=== PATIENT | male | born 2000 | race African-American/Black ===

== ENCOUNTER 2021-12-23 19:29 | Inpatient (IN) | payer SELFPAY ==
[2021-12-23] MEDS ORDERED: SODIUM CHLORIDE 0.9% 1000 ML IV SOLN IV ONE (22:13)
[2021-12-23] MEDS ORDERED: CEFEPIME/NS 2 GM/100 ML 2 GM/100 ML BAG IV ONE (22:13)
--- NOTE | 2021-12-23 22:19 | Emergency Department Report ---
ED General Adult HPI - General Chief complaint: Nausea/Vomiting/Diarrhea Stated complaint: NAUSEA, CRAMPS, BLISTER Time Seen by Provider: 12/23/21 21:46 Source: patient Mode of arrival: Ambulatory Limitations: No Limitations - History of Present Illness Initial comments: 21-year-old male presents emerge apartment complaining of a 1 day history of nausea and malaise with occasional fevers sensation and spasms to the hand and arm which rapidly began to progress. He began to notice some redness and swelling to the right forearm of an unknown etiology earlier this morning and the redness and began to spread up the arm despite [id number] treatment. Pain is dull and throbbing with no fevers, chills, sweats. Reports no chest pain or palpitations. He was follow with a dentist on this past for a deep cleaning which required him to be on amoxicillin following the deplaning while he was taking amoxicillin as as prescribed the symptoms did evolve and rapidly progressed. Severity scale (0 -10): 8 Quality: dull Consistency: constant Improves with: none Worsens with: none Associated Symptoms: denies other symptoms, malaise, nausea/vomiting. denies: chest pain, cough, loss of appetite, syncope, weakness Treatments Prior to Arrival: none - Related Data Allergies Allergy/AdvReac Type Severity Reaction Status Date / Time No Known Allergies Allergy Unverified 12/23/21 19:45 ED Review of Systems ROS: Stated complaint: NAUSEA, CRAMPS, BLISTER Other details as noted in HPI Comment: All other systems reviewed and negative ED Physical Exam - General Limitations: No Limitations General appearance: alert, in no apparent distress - Head Head exam: Present: atraumatic, normocephalic - Eye Eye exam: Present: normal appearance, PERRL, EOMI Pupils: Present: normal accommodation - ENT ENT exam: Present: normal exam, normal orophraynx, mucous membranes moist, TM's normal bilaterally - Neck Neck exam: Present: normal inspection, full ROM - Respiratory Respiratory exam: Present: normal lung sounds bilaterally. Absent: respiratory distress, wheezes, rales, chest wall tenderness, accessory muscle use - Cardiovascular Cardiovascular Exam: Present: regular rate, normal rhythm. Absent: systolic murmur, diastolic murmur, rubs, gallop - GI/Abdominal GI/Abdominal exam: Present: soft, normal bowel sounds - Rectal Rectal exam: Present: deferred - Extremities Exam Extremities exam: Present: normal inspection, tenderness, normal capillary refill. Absent: pedal edema, calf tenderness - Expanded Upper Extremity Exam Right Elbow exam: Present: other (There is redness and tenderness along the area of the medial epicondyle and lateral epicondyle consistent with nail trauma possible papule present. No epitrochlear lymphadenopathy is present.) Forearm Wrist exam: Present: tenderness, swelling, erythema, other (Lymphangitis of the right forearm with circumferential redness and swelling towards the wrist region. Painful with palpation warm to touch.). Absent: crepidus, dislocation Hand Wrist exam: Present: other (Cellulitis to the index finger with a papule noted tenderness to the touch. Cap refills are brisk.) - Back Exam Back exam: Present: normal inspection - Neurological Exam Neurological exam: Present: alert, oriented X3 - Psychiatric Psychiatric exam: Present: normal affect, normal mood - Skin Skin exam: Present: warm, dry, intact, normal color. Absent: rash ED Course Vital Signs 12/23/21 22:00 Temperature 98.6 F Pulse Rate 82 Respiratory 15 Rate Blood Pressure 133/85 [Left] O2 Sat by Pulse 98 Oximetry Critical care attestation.: If time is entered above; I have spent that time in minutes in the direct care of this critically ill patient, excluding procedure time. ED Disposition Condition: Stable
[2021-12-23] MEDS ORDERED: VANCOMYCIN PHARMACY TO DOSE IV SCH (23:00)
[2021-12-23] MEDS ORDERED: VANCOMYCIN 1,500 MG in SODIUM CHLORIDE 0.9% 500 ML 500 ML IV ONE (23:43)
[2021-12-24 00:03] LABS: Alanine Aminotransferase 17 units/L (7-56); Albumin 4.5 g/dL (3.9-5); Blood Urea Nitrogen 12 mg/dL (9-20); Calcium 9.1 mg/dL (8.4-10.2); Hemolysis Index 29
[2021-12-24 00:07] LABS: BUN/Creatinine Ratio 20
[2021-12-24] MEDS ORDERED: diphenhydrAMINE 50 MG/ML VIAL ONE (01:21)
[2021-12-24] MEDS ORDERED: diphenhydrAMINE 50 MG/ML VIAL IM PRN (01:27)
[2021-12-24] MEDS ORDERED: diphenhydrAMINE 50 MG/ML VIAL IV ONE (01:28)
[2021-12-24] MEDS ORDERED: ONDANSETRON 4 MG/2 ML INJ ONE (01:37)
[2021-12-24 02:04] LABS: Amorphous Crystals,Urine 1+; Bacteria,Urine 1+ /HPF (Negative); Bilirubin,Urine NEG (Negative); Blood,Urine NEG (Negative); Color,Urine Yellow (Yellow); Protein,Urine <15 mg/dL mg/dL (Negative); Urobilinogen,Urine < 2.0 mg/dL (<2.0)
[2021-12-24 02:30] LABS: Basophils % (Auto) 0.7 % (0.0-1.8); Eosinophils # (Auto) 0.3 K/mm3 (0.0-0.4); Eosinophils % (Auto) 3.8 % (0.0-4.3); Hematocrit 46.1 % (35.5-45.6); Hemoglobin 15.6 gm/dl (11.8-15.2); Lymphocytes # (Auto) 2.2 K/mm3 (1.2-5.4); Lymphocytes % (Auto) 31.5 % (13.4-35.0); Mean Corpuscular HGB Conc 34 % (32-34); Mean Corpuscular Volume 82 fl (84-94); Monocytes # (Auto) 0.6 K/mm3 (0.0-0.8); Monocytes % (Auto) 8.8 % (0.0-7.3); Platelet Count 266 K/mm3 (140-440); Red Blood Count 5.61 M/mm3 (3.65-5.03); Red Cell Distribution Width 12.8 % (13.2-15.2)
[2021-12-24] MEDS ORDERED: MORPHINE 4 MG/1 ML INJ IV PRN (03:49)
[2021-12-24] MEDS ORDERED: ONDANSETRON 4 MG/2 ML INJ IV PRN (03:49)
[2021-12-24] MEDS ORDERED: MAGNESIUM HYDROXIDE (MOM) ORAL LIQD UDC PO PRN (03:49)
[2021-12-24] MEDS ORDERED: ACETAMINOPHEN 325 MG TAB PO PRN (03:49)
[2021-12-24] MEDS ORDERED: MORPHINE 2 MG/1 ML INJ IV PRN (03:49)
--- NOTE | 2021-12-24 03:56 | History and Physical Report ---
History of Present Illness Date of examination: 12/24/21 Date of admission: 12/24/2021 Chief complaint: Right upper extremity pain and redness. History of present illness: 21-year-old male with no significant past medical history presenting to the emergency room today complaining of generalized malaise, fever, pain and redness on the right upper extremity. Symptoms were said to have started earlier this morning and has been progressively getting worse during the course of the day. Right upper extremity has become quite painful and slightly swollen. He states he must have been bitten by a bug but cannot recall when. Redness has begun to spread upwards from his wrist to his elbow. He has been seen by dentist within the last few days during which he had deep cleaning of his teeth and was placed on amoxicillin. Patient denies any chest pain or shortness of breath. Denies any sick contacts and no recent travel. Work-up in the emergency room today, labs were essentially unremarkable. Past History Past Medical History: No medical history Past Surgical History: No surgical history Social history: no significant social history Family history: no significant family history Medications and Allergies Allergies Allergy/AdvReac Type Severity Reaction Status Date / Time No Known Allergies Allergy Unverified 12/23/21 19:45 Active Meds: Active Medications Vancomycin HCl 1,250 mg/ (Sodium Chloride) 275 mls @ 166.667 mls/hr IV Q12H NASEEM Review of Systems Constitutional: no fever, no chills Ears, nose, mouth and throat: no nasal congestion, no sore throat Cardiovascular: no chest pain, no palpitations Respiratory: no cough, no shortness of breath Gastrointestinal: nausea, no abdominal pain, no vomiting, no diarrhea Genitourinary Male: no dysuria, no hematuria, no flank pain Musculoskeletal: no neck pain, no low back pain Integumentary: pruritis (On right hand), no rash Neurological: no headaches, no confusion Psychiatric: no anxiety, no depression Endocrine: no polyphagia, no polydipsia, no polyuria, no nocturia Exam - Constitutional Vitals: Temp Pulse Resp BP Pulse Ox 98.9 F 78 15 126/66 97 12/24/21 03:00 12/24/21 03:00 12/24/21 03:00 12/24/21 03:00 12/24/21 03:00 General appearance: Present: no acute distress, well-nourished - EENT Eyes: Present: PERRL, EOM intact. Absent: scleral icterus ENT: hearing intact, clear oral mucosa, dentition normal - Neck Neck: Present: supple, normal ROM - Respiratory Respiratory effort: normal Respiratory: bilateral: CTA - Cardiovascular Rhythm: regular Heart Sounds: Present: S1 & S2. Absent: gallop, systolic murmur, diastolic murmur, rub, click - Extremities Extremities: no ischemia, pulses intact, pulses symmetrical, No edema, normal temperature, normal color, Full ROM Peripheral Pulses: within normal limits - Abdominal General gastrointestinal: Present: soft, non-tender, non-distended, normal bowel sounds. Absent: mass - Integumentary Integumentary: Present: clear, warm, dry, rash, normal turgor - Musculoskeletal Musculoskeletal: strength equal bilaterally - Psychiatric Psychiatric: appropriate mood/affect, intact judgment & insight, memory intact - Neurologic Neurologic: CNII-XII intact, moves all extremities - Additional findings Additional findings: Skin: Redness in the medial aspect of right upper extremity. Mildly warm and tender to touch. Results - Labs CBC & Chem 7: 12/23/21 22:59 12/23/21 22:59 Labs: Abnormal lab results 12/23/21 12/23/21 Range/Units 22:59 22:59 RBC 5.61 H (3.65-5.03) M/mm3 Hgb 15.6 H (11.8-15.2) gm/dl Hct 46.1 H (35.5-45.6) % MCV 82 L (84-94) fl RDW 12.8 L (13.2-15.2) % [place] % (Auto) 8.8 H (0.0-7.3) % Creatinine 0.6 L (0.8-1.3) mg/dL Glucose 133 H (75-100) mg/dL Assessment and Plan - Patient Problems (1) Cellulitis of right upper extremity Current Visit: Yes Status: Acute Plan to address problem: Patient placed on empiric IV antibiotics. (2) DVT prophylaxis Current Visit: Yes Status: Acute Plan to address problem: Will place patient on subcutaneous heparin. (3) Full code status Current Visit: Yes Status: Acute Plan to address problem: Patient is full code.
[2021-12-24] MEDS: HEPARIN 5,000 UNIT/1 ML VIAL SUB-Q SCH ×3 (06:11→21:34)
[2021-12-24] MEDS: PIPERACIL/TAZOBACTA 4.5/NS 100 4.5 GM/100 ML VIAL IV SCH ×3 (09:47→21:33)
[2021-12-24] MEDS: SODIUM CHLORIDE 0.9% 1000 ML 1,000 ML IV SCH ×2 (09:48→21:34)
--- NOTE | 2021-12-24 11:15 | Progress Note ---
Assessment and Plan Assessment and plan: 21-year-old male with no significant past medical history admitted with right upper extremity cellulitis believed to be derived from insect bite. Right upper extremity cellulitis 12/24/2021. We will check plain films of the right upper extremity to rule out gas. Consider CT scan of the right upper extremity. Consult ID for further evaluation. Continue IV antibiotics History Interval history: No new issues overnight Hospitalist Physical - Constitutional Vitals: Temp Pulse Resp BP Pulse Ox 98.1 F 89 16 116/79 99 12/24/21 08:01 12/24/21 08:01 12/24/21 08:01 12/24/21 08:01 12/24/21 08:01 General appearance: Present: no acute distress, well-nourished - EENT Eyes: Present: PERRL, EOM intact ENT: hearing intact, clear oral mucosa, dentition normal - Neck Neck: Present: supple, normal ROM - Respiratory Respiratory effort: normal Respiratory: bilateral: CTA - Cardiovascular Rhythm: regular Heart Sounds: Present: S1 & S2. Absent: gallop, rub - Extremities Extremities: no ischemia, No edema, Full ROM - Abdominal General gastrointestinal: soft, non-tender, non-distended, normal bowel sounds - Integumentary Integumentary: Present: clear, warm, dry - Neurologic Neurologic: CNII-XII intact, moves all extremities Results - Labs CBC & Chem 7: 12/23/21 22:59 12/23/21 22:59 Labs: Laboratory Last Values WBC 7.1 K/mm3 (4.5-11.0) 12/23/21 22:59 RBC 5.61 M/mm3 (3.65-5.03) H 12/23/21 22:59 Hgb 15.6 gm/dl (11.8-15.2) H 12/23/21 22:59 Hct 46.1 % (35.5-45.6) H 12/23/21 22:59 MCV 82 fl (84-94) L 12/23/21 22:59 MCH 28 pg (28-32) 12/23/21 22:59 MCHC 34 % (32-34) 12/23/21 22:59 RDW 12.8 % (13.2-15.2) L 12/23/21 22:59 Plt Count 266 K/mm3 (140-440) 12/23/21 22:59 Lymph % (Auto) 31.5 % (13.4-35.0) 12/23/21 22:59 [place] % (Auto) 8.8 % (0.0-7.3) H 12/23/21 22:59 Eos % (Auto) 3.8 % (0.0-4.3) 12/23/21 22:59 Baso % (Auto) 0.7 % (0.0-1.8) 12/23/21 22:59 Lymph # (Auto) 2.2 K/mm3 (1.2-5.4) 12/23/21 22:59 [place] # (Auto) 0.6 K/mm3 (0.0-0.8) 12/23/21 22:59 Eos # (Auto) 0.3 K/mm3 (0.0-0.4) 12/23/21 22:59 Baso # (Auto) 0.0 K/mm3 (0.0-0.1) 12/23/21 22:59 Seg Neutrophils % 55.2 % (40.0-70.0) 12/23/21 22:59 Seg Neutrophils # 3.9 K/mm3 (1.8-7.7) 12/23/21 22:59 APTT 32.1 Sec. (24.2-36.6) 12/23/21 22:59 Sodium 137 mmol/L (137-145) 12/23/21 22:59 Potassium 4.1 mmol/L (3.6-5.0) 12/23/21 22:59 Chloride 101.0 mmol/L (98-107) 12/23/21 22:59 Carbon Dioxide 23 mmol/L (22-30) 12/23/21 22:59 Anion Gap 17 mmol/L 12/23/21 22:59 BUN 12 mg/dL (9-20) 12/23/21 22:59 Creatinine 0.6 mg/dL (0.8-1.3) L 12/23/21 22:59 Estimated GFR > 60 ml/min 12/23/21 22:59 BUN/Creatinine Ratio 20 % 12/23/21 22:59 Glucose 133 mg/dL (75-100) H 12/23/21 22:59 Lactic Acid 0.90 mmol/L (0.7-2.0) 12/24/21 01:20 Calcium 9.1 mg/dL (8.4-10.2) 12/23/21 22:59 Total Bilirubin 0.50 mg/dL (0.1-1.2) 12/23/21 22:59 AST 16 units/L (5-40) 12/23/21 22:59 ALT 17 units/L (7-56) 12/23/21 22:59 Alkaline Phosphatase 78 units/L (35-129) 12/23/21 22:59 Total Protein 7.4 g/dL (6.3-8.2) 12/23/21 22:59 Albumin 4.5 g/dL (3.9-5) 12/23/21 22:59 Albumin/Globulin Ratio 1.6 % 12/23/21 22:59 Urine Color Yellow (Yellow) 12/24/21 01:45 Urine Turbidity Cloudy (Clear) 12/24/21 01:45 Urine pH 7.0 (5.0-7.0) 12/24/21 01:45 Ur Specific [place] 1.027 (1.003-1.030) 12/24/21 01:45 Urine Protein <15 mg/dl mg/dL (Negative) 12/24/21 01:45 Urine Glucose (UA) Neg mg/dL (Negative) 12/24/21 01:45 Urine Ketones 20 mg/dL (Negative) 12/24/21 01:45 Urine Blood Neg (Negative) 12/24/21 01:45 Urine Nitrite Neg (Negative) 12/24/21 01:45 Urine Bilirubin Neg (Negative) 12/24/21 01:45 Urine Urobilinogen < 2.0 mg/dL (<2.0) 12/24/21 01:45 Ur Leukocyte Esterase Neg (Negative) 12/24/21 01:45 Urine WBC (Auto) 4.0 /HPF (0.0-6.0) 12/24/21 01:45 Urine RBC (Auto) 2.0 /HPF (0.0-6.0) 12/24/21 01:45 Urine Bacteria (Auto) 1+ /HPF (Negative) 12/24/21 01:45 Amorphous Crystals 1+ 12/24/21 01:45 Microbiology: Microbiology 12/23/21 22:59 Peripheral/Venous Blood Culture - Preliminary Culture in Progress 12/23/21 22:59 Peripheral/Venous Blood Culture - Preliminary Culture in Progress Active Medications - Current Medications Current Medications: Generic Name Dose Route Start Last Admin Trade Name Freq PRN Reason Stop Dose Admin Acetaminophen 650 mg 12/24/21 03:49 Acetaminophen 325 Mg Tab PO Q4H PRN Pain MILD(1-3)/Fever >100.5/WRIGHT Heparin Sodium (Porcine) 5,000 unit 12/24/21 06:00 12/24/21 06:11 Heparin 5,000 Unit/1 Ml Vial SUB-Q 5,000 unit Q8HR NASEEM Administration Sodium Chloride 1,000 mls @ 75 mls/hr 12/24/21 04:00 12/24/21 09:48 Nacl 0.9% 1000 Ml IV 75 mls/hr DIRECT NASEEM Administration Piperacillin Sod/Tazobactam Sod 4.5 gm in 100 mls @ 200 mls/hr 12/24/21 06:00 12/24/21 09:47 Zosyn/Ns 4.5gm/100ml IV Not Given Q8H [facility] Protocol Vancomycin HCl 1,500 mg/ 530 mls @ 333.333 mls/hr 12/24/21 12:00 Sodium Chloride IV Q12H NASEEM Magnesium Hydroxide 30 ml 12/24/21 03:49 Magnesium Hydroxide (Mom) Oral Liqd Udc PO Q4H PRN Constipation Morphine Sulfate 2 mg 12/24/21 03:49 Morphine 2 Mg/1 Ml Inj IV Q4H PRN Pain, Moderate (4-6) Morphine Sulfate 4 mg 12/24/21 03:49 Morphine 4 Mg/1 Ml Inj IV Q4H PRN Pain , Severe (7-10) Ondansetron HCl 4 mg 12/24/21 03:49 Ondansetron 4 Mg/2 Ml Inj IV Q8H PRN Nausea And Vomiting Sodium Chloride 10 ml 12/24/21 10:00 12/24/21 09:47 Sodium Chloride 0.9% 10 Ml Flush Syringe IV 10 ml BID NASEEM Administration Sodium Chloride 10 ml 12/24/21 03:49 Sodium Chloride 0.9% 10 Ml Flush Syringe IV PRN PRN LINE FLUSH
[2021-12-24] MEDS: VANCOMYCIN 1,500 MG in SODIUM CHLORIDE 0.9% 500 ML 500 ML IV SCH (11:56)
[2021-12-24] MEDS ORDERED: VANCOMYCIN 1,250 MG in SODIUM CHLORIDE 0.9% 250ML 250 ML IV SCH (12:00)
--- NOTE | 2021-12-24 13:19 | XRay Report ---
Right humerus-2 views Right forearm-2 views Right hand-2 views INDICATION: cellulitis. COMPARISON: None available. IMPRESSION: Mild generalized soft tissue swelling in the forearm with no subcutaneous gas or soft ti ssue wound identified. Otherwise there is no acute osseous abnormality or malalignment in the entire right upper extremity. No significant DJD. Signer Name: Ran Vazquez MD Signed: 12/24/2021 1:15 PM Workstation Name: [id number]
[2021-12-25] MEDS: VANCOMYCIN 1,500 MG in SODIUM CHLORIDE 0.9% 500 ML 500 ML IV SCH ×3 (00:02→23:30)
[2021-12-25] MEDS: HEPARIN 5,000 UNIT/1 ML VIAL SUB-Q SCH ×3 (05:21→22:25)
[2021-12-25] MEDS: PIPERACIL/TAZOBACTA 4.5/NS 100 4.5 GM/100 ML VIAL IV SCH (05:21)
[2021-12-25 05:38] LABS: Basophils % (Auto) 0.2 % (0.0-1.8); Eosinophils # (Auto) 0.4 K/mm3 (0.0-0.4); Eosinophils % (Auto) 6.3 % (0.0-4.3); Hematocrit 44.6 % (35.5-45.6); Hemoglobin 14.6 gm/dl (11.8-15.2); Lymphocytes # (Auto) 2.7 K/mm3 (1.2-5.4); Lymphocytes % (Auto) 47.6 % (13.4-35.0); Mean Corpuscular HGB Conc 33 % (32-34); Mean Corpuscular Volume 84 fl (84-94); Monocytes # (Auto) 0.4 K/mm3 (0.0-0.8); Monocytes % (Auto) 7.6 % (0.0-7.3); Platelet Count 245 K/mm3 (140-440); Red Blood Count 5.33 M/mm3 (3.65-5.03); Red Cell Distribution Width 12.9 % (13.2-15.2)
[2021-12-25 05:59] LABS: Blood Urea Nitrogen 6 mg/dL (9-20); Calcium 8.3 mg/dL (8.4-10.2); Hemolysis Index 6
[2021-12-25 06:36] LABS: BUN/Creatinine Ratio 9
--- NOTE | 2021-12-25 11:11 | Consultation ---
History of Present Illness - Reason for Consult Consult date: 12/25/21 - History of Present Illness 21-year-old man past medical history of none presented to the hospital complaining of malaise, fevers, right upper extremity pain. He began the day of admission and was continually worsened throughout the day. He believes he was bitten by a bug. He was recently seen by dentist and was given amoxicillin. Afebrile since admission with a white count of 5.7. Blood cultures no growth so far. Imaging personally reviewed: Hand x-ray: Soft tissue swelling Review of Systems: Bold if positive, otherwise negative General: fevers, chills, rigors HEENT: visual disturbance, diplopia, eye pain Respiratory: cough, sputum, hemoptysis, shortness of breath Cardiovascular: chest pain, syncope Gastrointestinal: nausea, vomiting, diarrhea, abdominal pain Genitourinary: dysuria, hematuria, flank pain Musculoskeletal: neck pain, back pain, joint pain, edema Neurologic: headaches, seizures Hematologic: easy bruising or bleeding Endocrine: night sweats, acute weight loss Skin: rash, jaundice, redness Psychiatric: suicidal, homicidal ideation Past History Past Medical History: No medical history Past Surgical History: No surgical history Social history: no significant social history Family history: no significant family history Medications and Allergies Allergies Allergy/AdvReac Type Severity Reaction Status Date / Time No Known Allergies Allergy Unverified 12/23/21 19:45 Active Meds: Active Medications Acetaminophen (Acetaminophen 325 Mg Tab) 650 mg PO Q4H PRN PRN Reason: Pain MILD(1-3)/Fever >100.5/WRIGHT Heparin Sodium (Porcine) (Heparin 5,000 Unit/1 Ml Vial) 5,000 unit SUB-Q Q8HR NASEEM Last Admin: 12/25/21 05:21 Dose: 5,000 unit Sodium Chloride (Nacl 0.9% 1000 Ml) 1,000 mls @ 75 mls/hr IV DIRECT NASEEM Last Admin: 12/24/21 21:34 Dose: 75 mls/hr Piperacillin Sod/Tazobactam Sod (Zosyn/Ns 4.5gm/100ml) 4.5 gm in 100 mls @ 200 mls/hr IV Q8H NASEEM; Protocol Last Admin: 12/25/21 05:21 Dose: 200 mls/hr Vancomycin HCl 1,500 mg/ (Sodium Chloride) 530 mls @ 333.333 mls/hr IV Q12H [facility] Last Admin: 12/25/21 00:02 Dose: 333.333 mls/hr Magnesium Hydroxide (Magnesium Hydroxide (Mom) Oral Liqd Udc) 30 ml PO Q4H PRN PRN Reason: Constipation Morphine Sulfate (Morphine 2 Mg/1 Ml Inj) 2 mg IV Q4H PRN PRN Reason: Pain, Moderate (4-6) Morphine Sulfate (Morphine 4 Mg/1 Ml Inj) 4 mg IV Q4H PRN PRN Reason: Pain , Severe (7-10) Ondansetron HCl (Ondansetron 4 Mg/2 Ml Inj) 4 mg IV Q8H PRN PRN Reason: Nausea And Vomiting Sodium Chloride (Sodium Chloride 0.9% 10 Ml Flush Syringe) 10 ml IV BID [facility] Last Admin: 12/24/21 21:34 Dose: 10 ml Sodium Chloride (Sodium Chloride 0.9% 10 Ml Flush Syringe) 10 ml IV PRN PRN PRN Reason: LINE FLUSH Physical Examination - Physical Exam Narrative exam: Physical Exam: Constitutional: Alert, cooperative. No acute distress Head, Ears, Nose: Normocephalic, atraumatic. External ears, nose normal Eyes: Conjunctivae/corneas clear. No icterus. No ptosis. Neck: Supple, no meningeal signs Oral: dentition fair, no thrush Cardiovascular: S1, S2 normal. Respiratory: Good air entry, clear to auscultation bilaterally GI: Soft, non-tender; bowel sounds normal. No peritoneal signs. Musculoskeletal: Right upper extremity red, swollen Skin: No rash or abscess Hem/Lymphatic: No palpable cervical or supraclavicular nodes. No lymphangitis Psych: Mood ok. Affect normal Neurological: Awake, alert, oriented. No gross abnormality - Constitutional Vitals: Vital Signs Temp Pulse Resp BP Pulse Ox 98 F 78 20 116/61 99 12/24/21 17:25 12/24/21 17:25 12/24/21 17:25 12/24/21 17:25 12/24/21 20:35 Temperature -Last 24 Hours Temperature 98 F Results - Labs CBC & Chem 7: 12/25/21 05:09 12/25/21 05:09 Labs: Abnormal lab results 05/30/22 05/30/22 Range/Units 05:09 05:09 RBC 5.33 H (3.65-5.03) M/mm3 MCH 27 L (28-32) pg RDW 12.9 L (13.2-15.2) % Lymph % (Auto) 47.6 H (13.4-35.0) % [place] % (Auto) 7.6 H (0.0-7.3) % Eos % (Auto) 6.3 H (0.0-4.3) % Seg Neutrophils % 38.3 L (40.0-70.0) % BUN 6 L (9-20) mg/dL Creatinine 0.7 L (0.8-1.3) mg/dL Glucose 102 H (75-100) mg/dL Calcium 8.3 L (8.4-10.2) mg/dL Assessment and Plan Cultures: Blood culture no growth so far A/P: 21 yo M no PMHx presented to the hospital complaining of: #Right arm erythema: Afebrile, normal white count. May be secondary to bug bite versus reaction from amoxicillin Recs: -Stopped Zosyn -Continue vancomycin -Would DC on Bactrim DS q12h and Kefllex 500mg q8h for 7 days -No need for amoxicillin with future dental cleanings. Thank you for the consult, we will continue to follow. MD Nick Arceo [facility] O: [phone] F: [phone]
--- NOTE | 2021-12-25 12:43 | Progress Note ---
Assessment and Plan Assessment and plan: 21-year-old male with no significant past medical history admitted with right upper extremity cellulitis believed to be derived from insect bite. Right upper extremity cellulitis 12/24/2021. We will check plain films of the right upper extremity to rule out gas. Consider CT scan of the right upper extremity. Consult ID for further evaluation. Continue IV antibiotics 12/25/2021. Plain films of the right upper extremity reveal no evidence of gas or any other acute abnormality. ID stop Zosyn and will continue with vancomycin. ID recommends medication with Bactrim and Keflex for 7 days at [facility]. Patient still with some significant tenderness and swelling. Anticipate discharge in a.m. History Interval history: No new issues overnight Hospitalist Physical - Constitutional Vitals: Temp Pulse Resp BP Pulse Ox 98 F 78 20 116/61 99 12/24/21 17:25 12/24/21 17:25 12/24/21 17:25 12/24/21 17:25 12/24/21 20:35 General appearance: Present: no acute distress, well-nourished - EENT Eyes: Present: PERRL, EOM intact ENT: hearing intact, clear oral mucosa, dentition normal - Neck Neck: Present: supple, normal ROM - Respiratory Respiratory effort: normal Respiratory: bilateral: CTA - Cardiovascular Rhythm: regular Heart Sounds: Present: S1 & S2. Absent: gallop, rub - Extremities Extremities: no ischemia, No edema, Full ROM - Abdominal General gastrointestinal: soft, non-tender, non-distended, normal bowel sounds - Integumentary Integumentary: Present: clear, warm, dry - Neurologic Neurologic: CNII-XII intact, moves all extremities Results - Labs CBC & Chem 7: 12/25/21 05:09 12/25/21 05:09 Labs: Laboratory Last Values WBC 5.7 K/mm3 (4.5-11.0) 12/25/21 05:09 RBC 5.33 M/mm3 (3.65-5.03) H 12/25/21 05:09 Hgb 14.6 gm/dl (11.8-15.2) 12/25/21 05:09 Hct 44.6 % (35.5-45.6) 12/25/21 05:09 MCV 84 fl (84-94) 12/25/21 05:09 MCH 27 pg (28-32) L 12/25/21 05:09 MCHC 33 % (32-34) 12/25/21 05:09 RDW 12.9 % (13.2-15.2) L 12/25/21 05:09 Plt Count 245 K/mm3 (140-440) 12/25/21 05:09 Lymph % (Auto) 47.6 % (13.4-35.0) H 12/25/21 05:09 [place] % (Auto) 7.6 % (0.0-7.3) H 12/25/21 05:09 Eos % (Auto) 6.3 % (0.0-4.3) H 12/25/21 05:09 Baso % (Auto) 0.2 % (0.0-1.8) 12/25/21 05:09 Lymph # (Auto) 2.7 K/mm3 (1.2-5.4) 12/25/21 05:09 [place] # (Auto) 0.4 K/mm3 (0.0-0.8) 12/25/21 05:09 Eos # (Auto) 0.4 K/mm3 (0.0-0.4) 12/25/21 05:09 Baso # (Auto) 0.0 K/mm3 (0.0-0.1) 12/25/21 05:09 Seg Neutrophils % 38.3 % (40.0-70.0) L 12/25/21 05:09 Seg Neutrophils # 2.2 K/mm3 (1.8-7.7) 12/25/21 05:09 APTT 32.1 Sec. (24.2-36.6) 12/23/21 22:59 Sodium 139 mmol/L (137-145) 12/25/21 05:09 Potassium 4.0 mmol/L (3.6-5.0) 12/25/21 05:09 Chloride 106.6 mmol/L (98-107) 12/25/21 05:09 Carbon Dioxide 23 mmol/L (22-30) 12/25/21 05:09 Anion Gap 13 mmol/L 12/25/21 05:09 BUN 6 mg/dL (9-20) L 12/25/21 05:09 Creatinine 0.7 mg/dL (0.8-1.3) L 12/25/21 05:09 Estimated GFR > 60 ml/min 12/25/21 05:09 BUN/Creatinine Ratio 9 % 12/25/21 05:09 Glucose 102 mg/dL (75-100) H 12/25/21 05:09 Lactic Acid 0.90 mmol/L (0.7-2.0) 12/24/21 01:20 Calcium 8.3 mg/dL (8.4-10.2) L 12/25/21 05:09 Total Bilirubin 0.50 mg/dL (0.1-1.2) 12/23/21 22:59 AST 16 units/L (5-40) 12/23/21 22:59 ALT 17 units/L (7-56) 12/23/21 22:59 Alkaline Phosphatase 78 units/L (35-129) 12/23/21 22:59 Total Protein 7.4 g/dL (6.3-8.2) 12/23/21 22:59 Albumin 4.5 g/dL (3.9-5) 12/23/21 22:59 Albumin/Globulin Ratio 1.6 % 12/23/21 22:59 Urine Color Yellow (Yellow) 12/24/21 01:45 Urine Turbidity Cloudy (Clear) 12/24/21 01:45 Urine pH 7.0 (5.0-7.0) 12/24/21 01:45 Ur Specific [place] 1.027 (1.003-1.030) 12/24/21 01:45 Urine Protein <15 mg/dl mg/dL (Negative) 12/24/21 01:45 Urine Glucose (UA) Neg mg/dL (Negative) 12/24/21 01:45 Urine Ketones 20 mg/dL (Negative) 12/24/21 01:45 Urine Blood Neg (Negative) 12/24/21 01:45 Urine Nitrite Neg (Negative) 12/24/21 01:45 Urine Bilirubin Neg (Negative) 12/24/21 01:45 Urine Urobilinogen < 2.0 mg/dL (<2.0) 12/24/21 01:45 Ur Leukocyte Esterase Neg (Negative) 12/24/21 01:45 Urine WBC (Auto) 4.0 /HPF (0.0-6.0) 12/24/21 01:45 Urine RBC (Auto) 2.0 /HPF (0.0-6.0) 12/24/21 01:45 Urine Bacteria (Auto) 1+ /HPF (Negative) 12/24/21 01:45 Amorphous Crystals 1+ 12/24/21 01:45 Microbiology: Microbiology 12/23/21 22:59 Peripheral/Venous Blood Culture - Preliminary NO GROWTH AFTER 24 HOURS 12/23/21 22:59 Peripheral/Venous Blood Culture - Preliminary NO GROWTH AFTER 24 HOURS Ruano/IV: Voiding Method Toilet Active Medications - Current Medications Current Medications: Generic Name Dose Route Start Last Admin Trade Name Freq PRN Reason Stop Dose Admin Acetaminophen 650 mg 12/24/21 03:49 Acetaminophen 325 Mg Tab PO Q4H PRN Pain MILD(1-3)/Fever >100.5/WRIGHT Heparin Sodium (Porcine) 5,000 unit 12/24/21 06:00 12/25/21 05:21 Heparin 5,000 Unit/1 Ml Vial SUB-Q 5,000 unit Q8HR NASEEM Administration Sodium Chloride 1,000 mls @ 75 mls/hr 12/24/21 04:00 12/24/21 21:34 Nacl 0.9% 1000 Ml IV 75 mls/hr DIRECT NASEEM Administration Vancomycin HCl 1,500 mg/ 530 mls @ 333.333 mls/hr 12/24/21 12:00 12/25/21 00:02 Sodium Chloride IV 333.333 mls/hr Q12H NASEEM Administration Magnesium Hydroxide 30 ml 12/24/21 03:49 Magnesium Hydroxide (Mom) Oral Liqd Udc PO Q4H PRN Constipation Morphine Sulfate 2 mg 12/24/21 03:49 Morphine 2 Mg/1 Ml Inj IV Q4H PRN Pain, Moderate (4-6) Morphine Sulfate 4 mg 12/24/21 03:49 Morphine 4 Mg/1 Ml Inj IV Q4H PRN Pain , Severe (7-10) Ondansetron HCl 4 mg 12/24/21 03:49 Ondansetron 4 Mg/2 Ml Inj IV Q8H PRN Nausea And Vomiting Sodium Chloride 10 ml 12/24/21 10:00 12/24/21 21:34 Sodium Chloride 0.9% 10 Ml Flush Syringe IV 10 ml BID NASEEM Administration Sodium Chloride 10 ml 12/24/21 03:49 Sodium Chloride 0.9% 10 Ml Flush Syringe IV PRN PRN LINE FLUSH
[2021-12-26] MEDS: HEPARIN 5,000 UNIT/1 ML VIAL SUB-Q SCH (05:38)
[2021-12-26 06:00] LABS: Basophils # (Auto) 0.1 K/mm3 (0.0-0.1); Eosinophils # (Auto) 0.4 K/mm3 (0.0-0.4); Eosinophils % (Auto) 5.9 % (0.0-4.3); Hematocrit 44.7 % (35.5-45.6); Lymphocytes % (Auto) 48.7 % (13.4-35.0); Mean Corpuscular HGB Conc 34 % (32-34); Mean Corpuscular Volume 83 fl (84-94); Monocytes # (Auto) 0.5 K/mm3 (0.0-0.8); Monocytes % (Auto) 8.8 % (0.0-7.3); Platelet Count 255 K/mm3 (140-440); Red Blood Count 5.41 M/mm3 (3.65-5.03); Red Cell Distribution Width 13.3 % (13.2-15.2)
[2021-12-26 06:19] LABS: Blood Urea Nitrogen 8 mg/dL (9-20); Calcium 8.6 mg/dL (8.4-10.2); Hemolysis Index 27
[2021-12-26 06:22] LABS: BUN/Creatinine Ratio 13
--- NOTE | 2021-12-26 10:51 | Discharge Summary ---
Providers - Providers Date of Admission: 12/24/21 03:49 Date of discharge: 12/26/21 Attending physician: BOBBY ELKINS MD 12/24/21 11:13 Consult to Physician [CONS] Routine Comment: Consulting Provider: MACI MENDEZ Physician Instructions: Reason For Exam: cellulitis Primary care physician: FILTERER Hospitalization Reason for admission: right arm swelling Condition: Stable Hospital course: History of present illness: 21-year-old male with no significant past medical history presenting to the emergency room today complaining of generalized malaise, fever, pain and redness on the right upper extremity. Symptoms were said to have started earlier this morning and has been progressively getting worse during the course of the day. Right upper extremity has become quite painful and slightly swollen. He states he must have been bitten by a bug but cannot recall when. Redness has begun to spread upwards from his wrist to his elbow. He has been seen by dentist within the last few days during which he had deep cleaning of his teeth and was placed on amoxicillin. Patient denies any chest pain or shortness of breath. Denies any sick contacts and no recent travel. Work-up in the emergency room today, labs were essentially unremarkable. hospital course: 12/24/2021. We will check plain films of the right upper extremity to rule out gas. Consider CT scan of the right upper extremity. Consult ID for further evaluation. Continue IV antibiotics 12/25/2021. Plain films of the right upper extremity reveal no evidence of gas or any other acute abnormality. ID stop Zosyn and will continue with vancomycin. ID recommends medication with Bactrim and Keflex for 7 days at discharge. Patient still with some significant tenderness and swelling. Anticipate discharge in a.m. 12/26/2021: Patient was admitted for right upper extremity cellulitis due to insect bites. He was initially started on IV vancomycin and IV Zosyn. Patient arm swelling has improved. He was afebrile by the time of discharge and vital signs were stable. Discharge home with prescriptions for Bactrim and clip Keflex x7 days. Medications electronically transmitted to patient's pharmacy. He was advised to follow-up with his primary care doctor in 3 to 5 days. Assessment: #Right arm cellulitis Disposition: 01 HOME / SELF CARE / HOMELESS Final Discharge Diagnosis (Prints w/discharge instructions): cellulitis Time spent for discharge: 35 Core Measure Documentation - Palliative Care Palliative Care/ Comfort Measures: Not Applicable - Core Measures Any of the following diagnoses?: none Exam - Physical Exam Narrative exam: Physical Exam: VITAL SIGNS: Reviewed. GENERAL: The patient appears normally developed, Vital signs as documented. HEAD: No signs of head trauma. EYES: Pupils are equal. Extraocular motions intact. EARS: Hearing grossly intact. MOUTH: Oropharynx is normal. NECK: No adenopathy, no JVD. CHEST: Chest with clear breath sounds bilaterally. No wheezes, rales, or rhonchi. CARDIAC: Regular rate and rhythm. S1 and S2, without murmurs, gallops, or rubs. VASCULAR: No Edema. Peripheral pulses normal and equal in all extremities. ABDOMEN: Soft, non tender and non distended. No rebound or guarding, and no masses palpated. Bowel Sounds normal. MUSCULOSKELETAL: Good range of motion of all major joints. Extremities without clubbing, cyanosis or edema. NEUROLOGIC EXAM: Alert and oriented x 4. no focal sensory or strength deficits. PSYCHIATRIC: Mood normal. SKIN: detail exam as documented in skin assessment. Insect bites noted on right upper extremity. Swelling is resolved. - Constitutional Vitals: Temp Pulse Resp BP Pulse Ox 97.6 F 54 L 16 107/62 99 12/26/21 05:09 12/26/21 05:09 12/26/21 05:09 12/26/21 05:09 12/26/21 05:09 Plan Follow up with: PRIMARY CAREMD [Primary Care Provider] - 7 Days Prescriptions: Sulfamethoxazole/Trimethoprim [Bactrim DS TAB] 1 each PO BID 7 Days #14 tab cephALEXin [Keflex] 500 mg PO Q12HR 7 Days #14 cap
[2021-12-26] MEDS: VANCOMYCIN 1,500 MG in SODIUM CHLORIDE 0.9% 500 ML 500 ML IV SCH (11:12)
[2021-12-26 12:48] VITALS: BP 144/73
== END 2021-12-26 13:44 | disposition home or self-care (01) | DRG 603 ==
LOC: ED 19:29 → 3A 12-24 03:49
PROVIDERS: ADMIT Internal Medicine Geriatric Medicine; ATTEND Internal Medicine
DX: L03.113 Cellulitis of right upper limb (principal)
CPT/HCPCS: 36415; 80048; 80053; 81001; 82140; 85025; 85730; 87040; G0378; J0692; J1200; J1644; J2405; J2543; J3370; J7030; J7040